=== PATIENT | male | born 1960 | race Caucasian/White ===

== ENCOUNTER 2018-04-27 10:12 | Day surgery (SDC) | payer MEDICARE, MEDICAID ==
[~2018-04-27] VITALS: Ht 182.9 cm; Wt 151.8 kg
[~2018-04-27 10:12] MED LIST: AMBIEN 10MG10 MG PO; ASPIRIN 81M81 MG/TA2 PO; CEFAZOLIN1 GM IV; CEPHALEXIN500 M1 PO; CYMBALTA 60MG60 MG PO; DIOVAN HCT 25 M1 TA1 PO; DIOVAN160 MG PO; DULCOLAX S10 MG/SUPP RC; GABAPENTIN400 M1 PO; GENTAMICIN OPTHA3 GM OP; LANTUS100 U/ML SC; LEVAQUIN 5500 MG/TA1 PO; LEVAQUIN 750MG750 M1 PO; MILK OF MA400 MG/52 PO; MYLANTA 150 ML150 M1 PO; NEURONTIN400 MG/CAP PO; NORCO 325 MG-7.1 TAB PO; NORVASC 10MG10 MG PO; NORVASC 5MG5 MG/TAB PO; NOVLOG; NOVOLOG 100U100 U/ML SQ; PERCOCET 325 MG1 TA2 PO; SEROQUEL 2525 MG/TAB PO; TOPROL XL 25MG25 MG PO; TYLENOL 325MG325 MG PO; TYLENOL ARTHRI650 M1 PO; TYLENOL SU650 MG/SUP RC; ULTRAM 50MG TAB50 MG PO; ZOCOR 20MG20 MG PO
[2018-04-27 10:43] VITALS: BP 160/80; PULSE 81; TEMP 97.4
[2018-04-27] MEDS ORDERED: LANTUS100 U/ML SQ (11:22)
[2018-04-27] MEDS ORDERED: ZOCOR 20MG20 MG PO (11:24)
[2018-04-27] MEDS ORDERED: NOVOLOG 100U100 U/M1 SQ (11:24)
[2018-04-27] MEDS ORDERED: DIOVAN HCT 25 M1 TA1 PO (11:25)
[2018-04-27] MEDS ORDERED: COUMADIN4 MG PO (11:27)
[2018-04-27] MEDS ORDERED: ULTRAM 50MG TAB50 MG PO (11:29)
[2018-04-27] MEDS ORDERED: SEROQUEL 2525 MG/TAB PO (11:30)
[2018-04-27] MEDS ORDERED: ZANAFLEX CAPSULE4 MG PO (11:30)
[2018-04-27] MEDS ORDERED: AMBIEN 10MG10 MG PO (11:31)
[2018-04-27] MEDS ORDERED: COUMADIN 3MG3 MG/TAB PO (11:31)
[2018-04-27] MEDS ORDERED: NEURONTIN400 MG/CAP PO (11:32)
[2018-04-27 12:27] VITALS: BP 160/76; PULSE 78; TEMP 98
[2018-04-27 12:42] VITALS: BP 119/90; PULSE 77
[2018-04-27 12:57] VITALS: BP 137/77; PULSE 69
== END 2018-04-27 13:15 | disposition home or self-care (01) ==
LOC: SDCO 10:12
DX: D12.2 Benign neoplasm of ascending colon (principal); D12.0 Benign neoplasm of cecum; D12.5 Benign neoplasm of sigmoid colon; K57.30 Diverticulosis of large intestine without perforation or abscess without bleeding; J44.9 Chronic obstructive pulmonary disease, unspecified; I10 Essential (primary) hypertension; G47.33 Obstructive sleep apnea (adult) (pediatric); I48.91 Unspecified atrial fibrillation; E11.9 Type 2 diabetes mellitus without complications; Z86.711 Personal history of pulmonary embolism; Z79.01 Long term (current) use of anticoagulants; Z79.899 Other long term (current) drug therapy
CPT/HCPCS: J2250; J2405; J3010; J7030

== ENCOUNTER → 2019-03-08 | Outpatient (CLI) | payer MEDICARE, MEDICAID ==
[~2019-03-08] MED LIST changes: +AMOXICILLIN 8751 TAB PO; +COUMADIN 3MG3 MG/TAB PO; +COUMADIN4 MG PO; +DOXYCYCLINE 10100 MG PO; +LANTUS100 U/ML SQ; +NOVOLOG 100U100 U/M1 SQ; +ZANAFLEX CAPSULE4 MG PO
== END ==
LOC: COL.RAD 12:42
DX: M47.817 Spondylosis without myelopathy or radiculopathy, lumbosacral region (principal); M48.07 Spinal stenosis, lumbosacral region; G89.29 Other chronic pain

== ENCOUNTER → 2020-01-17 | Outpatient (CLI) | payer MEDICARE, MEDICAID | LOC: ZCOL.LAB 15:31 | DX: E11.69 Type 2 diabetes mellitus with other specified complication (principal); I83.212 Varicose veins of right lower extremity with both ulcer of calf and inflammation ==

== ENCOUNTER → 2020-02-13 | Outpatient (CLI) | payer MEDICARE, MEDICAID | LOC: ZCOL.LAB 18:28 | DX: E11.621 Type 2 diabetes mellitus with foot ulcer (principal); L97.419 Non-pressure chronic ulcer of right heel and midfoot with unspecified severity ==

== ENCOUNTER → 2020-02-13 | Outpatient (CLI) | payer MEDICARE, MEDICAID | LOC: COL.LAB 15:27 | DX: E11.621 Type 2 diabetes mellitus with foot ulcer (principal); L97.419 Non-pressure chronic ulcer of right heel and midfoot with unspecified severity ==

== ENCOUNTER 2020-03-07 09:14 | Inpatient (IN) | payer MEDICARE, MEDICAID ==
[~2020-03-07] VITALS: Ht 182.9 cm; Wt 152.3 kg
[2020-03-07] MEDS ORDERED: TOPROL XL 50MG50 MG PO (09:23)
[2020-03-07] MEDS ORDERED: NORVASC 5MG5 MG/TAB PO (09:24)
[2020-03-07] MEDS ORDERED: BACTRIM DS 8001 TAB PO (09:24)
[2020-03-07] MEDS ORDERED: COUMADIN 5MG5 MG/TAB PO (09:25)
[2020-03-07] MEDS ORDERED: ASPIRIN E.C. 8181 MG PO (09:26)
[2020-03-07 09:57] LABS: BASO % 0.4 % (0.0-2.0); EOS % 0.3 % (0-4.0); GRAN # 9.5 (1.4-6.5); HEMATOCRIT 44.8 % (42.0-52.0); HEMOGLOBIN 14.3 g/dl (13.5-18.0); LYMPH # 0.8 (1.2-3.4); LYMPH % 7.3 % (20.0-51.0); MEAN CELL VOLUME 87 fl (80.0-100.0); MEAN CORPUSCULAR HEMOGLOBIN 28 pg (27.0-31.0); MEAN CORPUSCULAR HGB CONC 32 g/dl (33.0-37.0); MEAN PLATELET VOLUME 9.8 fl (7.4-10.4); MONO # 0.5 (0.1-0.6); MONO % 4.7 % (1.7-9.3); PLATELET COUNT 256 K/mm3 (130-400); RED BLOOD COUNT 5.15 M/mm3 (4.20-5.60); REDCELL DISTRIBUTION WIDTH-CV 15.7 % (11.5-14.5)
[2020-03-07 10:07] LABS: ALBUMIN 4.5 gm/dL (3.5-5.0); BILIRUBIN,TOTAL 0.8 mg/dL (0.0-1.0); C-REACTIVE PROTEIN 4.4 mg/dL (0.0-0.9); CALCIUM 9.2 mg/dL (8.4-10.2); CREATININE, serum 1.28 (0.66-1.25); POTASSIUM 4.3 mmol/L (3.4-5.0); TOTAL PROTEIN 8.7 gm/dL (6.4-8.2)
[2020-03-07 10:21] LABS: ERYTHROCYTE SEDIMENTATION RATE 19 mm/hr (0-30)
[2020-03-07 10:56] LABS: TROPONIN-I < 0.012 ng/mL (0.000-0.035)
[2020-03-07 11:57] LABS: PROTHROMBIN TIME 139.2 SECONDS (9.7-12.8)
[2020-03-07 11:58] LABS: INR 12.1 (0.8-3.0)
[2020-03-07 16:03] VITALS: BP 144/54; PULSE 74; TEMP 97.8
--- NOTE | 2020-03-07 18:00 | NUR ---
Pt arrived to room 310. He is pleasant A/O x4. Breathing is even and unlabored on RA. Pt reports some pain to LLE, lower back. No abrasion/bruising visualized at this time. 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 Pt denies any N/V. Did have one bloody nose after coming to floor which resolved with pressure and ice. POC discussed with patient who verbalizes understanding. He has no further needs at this time. Call light within reach.
[2020-03-07 18:49] VITALS: BP 148/62; PULSE 73; TEMP 97.7
--- NOTE | 2020-03-07 21:30 | NUR ---
PT A/O X3, WITH C/O PAIN IN LLE RATED AT A 6/10, GAVE NORCO FOR PAIN. PT IN BED WITH HOB ELEVATED AT A 45 DEGREE ANGLE. PT BLOWS NOSE FORCEFULLY AND HAS BLOOD CLOTS EXSPELLED. ADVISED PT NOT TO BLOW NOSE SO FORCEFULLY AND TO ONLY BLOW ON NOSTRIL AT A TIME. NO OTHER NEEDS AT THIS TIME, CALL LIGHT WITHIN REACH.
[2020-03-07 23:33] VITALS: BP 154/57; PULSE 80; TEMP 97.4
[2020-03-08 04:16] VITALS: BP 139/58; PULSE 88; TEMP 98.7
--- NOTE | 2020-03-08 04:37 | NUR ---
CALLED DR. CHAWLA IN REFERENCE TO PT RETAINING URINE. PT STATED THAT HE HAD A LOT OF FLUIDS IN BUT HARDLY ANYTHING IS COMING OUT. BLADDER SCAN SHOWS THAT HE HAD 897ML OF URINE IN HIS BLADDER. DR. CHAWLA GAVE ORDERS TO PLACE A MONGE IN AND GET A UA.
--- NOTE | 2020-03-08 05:18 | NUR ---
INSERTED MONGE CATHETER 16F WITH 10CC OF STERILE WATER. PT HAD 930ML OF URINE OUT AFTER INSERTION. PT DID URINATE IN URINAL AND ONLY HAD 100ML OUT.
[2020-03-08 05:23] LABS: COLLECTION METHOD CLEAN CATCH
[2020-03-08 05:28] LABS: MUCOUS Present /lpf; PH 5 (5-8); SQUAMOUS EPITHELIAL None Seen /hpf; URINE APPEARANCE Clear; URINE BACTERIA Rare /hpf; URINE BILIRUBIN Negative (NEGATIVE); URINE BLOOD 1+ (NEGATIVE); URINE COLOR Yellow; URINE GLUCOSE 2+ (NEGATIVE); URINE KETONE 1+ (NEGATIVE); URINE LEUKOCYTE ESTERASE Negative (NEGATIVE); URINE NITRATE Negative (NEGATIVE); URINE PROTEIN(semi-quant) 2+ (NEGATIVE); URINE RBC 0-2 /hpf; URINE UROBILINOGEN Negative (NEGATIVE)
--- NOTE | 2020-03-08 07:12 | NUR ---
PT HAS BEEN UP MOST OF THE NIGHT. DID NOT SLEEP WELL. PT NOT BEING CONTROLLED WITH ONE NORCO. PT HAD A FAIRLY GOOD NIGHT, WITH ONLY ISSUE OF URINARY RETENTION, AND MONGE CATHETER PLACED. PT HAS CALL LIGHT WITHIN REACH.
[2020-03-08 07:15] LABS: BASO # 0.1 (0.0-0.2); BASO % 0.5 % (0.0-2.0); EOS # 0.1 (0.0-0.7); EOS % 0.8 % (0-4.0); GRAN # 7.3 (1.4-6.5); GRAN % 76.8 % (42.2-75.2); LYMPH # 1.3 (1.2-3.4); LYMPH % 13.8 % (20.0-51.0); MEAN CELL VOLUME 87 fl (80.0-100.0); MEAN CORPUSCULAR HGB CONC 32 g/dl (33.0-37.0); MEAN PLATELET VOLUME 9.7 fl (7.4-10.4); MONO # 0.7 (0.1-0.6); MONO % 7.7 % (1.7-9.3); PLATELET COUNT 239 K/mm3 (130-400); RED BLOOD COUNT 4.15 M/mm3 (4.20-5.60); REDCELL DISTRIBUTION WIDTH-CV 15.7 % (11.5-14.5)
[2020-03-08 07:28] LABS: INR 6.1 (0.8-3.0)
[2020-03-08 07:29] LABS: HEMOGLOBIN 11.6 g/dl (13.5-18.0); MEAN CORPUSCULAR HEMOGLOBIN 28 pg (27.0-31.0)
[2020-03-08 07:36] LABS: CALCIUM 8.3 mg/dL (8.4-10.2); CREATININE, serum 1.07 (0.66-1.25); POTASSIUM 3.8 mmol/L (3.4-5.0)
[2020-03-08 07:42] VITALS: BP 140/54; PULSE 80; TEMP 97.7
[2020-03-08 11:06] VITALS: BP 152/55; PULSE 79; TEMP 98.6
[2020-03-08 17:30] VITALS: BP 141/53; PULSE 74; TEMP 98.8
--- NOTE | 2020-03-08 17:54 | NUR ---
SW met with patient to complete intake. Patient states that he lives alone in [place]. Patient states that he utilize a cane and a walker at home. Patient states that he is independent with his care, but does use a moterized chair as well. Patient provides that his primary customer contact specialist is his sister Nida, PCP is Dr. Ahuja, and obtains meds from [facility]. Patient states that he would like to exlpore other home health options has he didn't care for the last one. Patient stated that he would like to discuss that at a later time. Patient provides he plans to go back to his home upon dc and currently does not have any concerns. SW will continue to follow.
[2020-03-08 18:57] VITALS: BP 143/53; PULSE 79; TEMP 98.1
--- NOTE | 2020-03-08 20:00 | NUR ---
Assessment complete. Patient complains of pain 8/10 in right hip/leg. PRN morphine administered, per patient request. Patient states his wound care nurse changes his dressing once a week, unless there is drainage. Dressings assessed on lower extremities had no evidence of drainage. Leo is draining yellow, clear urine. Will continue to monitor; Call light in reach.
[2020-03-09 00:13] VITALS: BP 138/53; PULSE 71; TEMP 98.2
[2020-03-09 04:00] VITALS: BP 135/57; PULSE 68; TEMP 98.8
--- NOTE | 2020-03-09 06:20 | NUR ---
Patient has had an uneventful night. After receiving pain medication at the beginning of shift, he has slept throughout the shift with minimal complaints. No new concerns.
[2020-03-09 06:32] LABS: BASO # 0.1 (0.0-0.2); BASO % 0.6 % (0.0-2.0); EOS # 0.3 (0.0-0.7); EOS % 2.7 % (0-4.0); GRAN % 77.7 % (42.2-75.2); HEMOGLOBIN 10.6 g/dl (13.5-18.0); LYMPH % 9.5 % (20.0-51.0); MEAN CELL VOLUME 88 fl (80.0-100.0); MEAN CORPUSCULAR HEMOGLOBIN 28 pg (27.0-31.0); MEAN CORPUSCULAR HGB CONC 32 g/dl (33.0-37.0); MEAN PLATELET VOLUME 10.3 fl (7.4-10.4); MONO # 0.9 (0.1-0.6); PLATELET COUNT 226 K/mm3 (130-400); RED BLOOD COUNT 3.81 M/mm3 (4.20-5.60); REDCELL DISTRIBUTION WIDTH-CV 15.7 % (11.5-14.5)
[2020-03-09 06:34] LABS: HEMATOCRIT 33.4 % (42.0-52.0)
[2020-03-09 06:37] LABS: INR 1.7 (0.8-3.0); PROTHROMBIN TIME 19.6 SECONDS (9.7-12.8)
[2020-03-09 06:43] LABS: CALCIUM 8.2 mg/dL (8.4-10.2); CREATININE, serum 1.29 (0.66-1.25); POTASSIUM 3.8 mmol/L (3.4-5.0)
[2020-03-09 07:28] VITALS: BP 133/48; PULSE 88; TEMP 98.3
--- NOTE | 2020-03-09 08:25 | NUR ---
Assessment complete. Patient laying in bed at this time. Awake and alert. Reports pain at a 7 out of 10 at this time in the right hip/leg area. Bilateral legs are very discolored, dry and scaley, pulses difficult to palpate but are present. IV site is CD&I. PAtient is aware of his POC at this time. Medications administered per orders. PRN pain medication provided for pain. NO other needs were expressed at this time. CAll light is in reach.
--- NOTE | 2020-03-09 10:25 | NUR ---
DORON collaborated with JOVON Alicea. Deanne states that they are recommending SNF for the patient. DORON met with the patient to discuss their recommendation. The patient is agreeable to SNF and chose 1) [facility] 2) [facility]. The patient was also agreeable for SW to send a referral to [facility]. DORON contacted and faxed a referral to all three facilities. SW awaiting their screens. A COVID test was also ordered. Awaiting COVID results.
[2020-03-09 11:32] VITALS: BP 132/55; PULSE 78; TEMP 97.9
--- NOTE | 2020-03-09 14:48 | NUR ---
Patient went down for MRI earlier today and returned because he refused senior living through the transfer to the MRI table. Patient stated that he was in too much pain despite the fact that I informed him that he would be going for another scan and he did not state that he was in pain whatso ever, he denied further needs. When patient returned I let him know and apologized that I was unaware of his pain and he apologized for not informing me. He agreed to have the MRI done tomorrow as long as the pain medications are admininstered prior. Patient also refused the dulcolax suppository stating "why am I gonna take something to make me go poop when I cant walk or stand up". He agreed to the miralax but did not want to take anything more. PRN morphine was given at 1305 and patient was just reassessed for pain, he states that he does not need anymore pain medication at this time. Will continue to monitor. Call light is in reach.
--- NOTE | 2020-03-09 16:26 | NUR ---
Lee, at [facility], reports that they do not have a male bed available at this time. SW to inform the patient.
--- NOTE | 2020-03-09 16:45 | NUR ---
Leela, at [facility], reports that they will follow the patient; but will want to see that the patient's pain is managed and controlled and that he is participating with therapy. SW to update and discuss this with the patient.
[2020-03-09 17:38] VITALS: BP 163/66; PULSE 73; TEMP 98.3
--- NOTE | 2020-03-09 18:03 | NUR ---
Patient had a good shift after he understood to make sure he asked for pain medication when he needed it. His pain was rated at an 8 when he woke up from his nap just now. PRN morphine was provided for this. Patient is in much better spirits now and understands that he will be getting his MRI tomorrow and that he can recieve pain medication prior. Leo is patent draining clear dark yello/orange urine. Continuing to monitor. Call light is in reach.
--- NOTE | 2020-03-09 18:50 | NUR ---
Report received from EMERITA Momin. Pt lying flat in bed. Denies needs at this time. Will continue to monitor.
[2020-03-09 19:28] VITALS: BP 141/56; PULSE 73; TEMP 98
--- NOTE | 2020-03-09 19:50 | NUR ---
Shift assessment complete. HRRR, LCTA, A&Ox4. O2 at 1.5L NC. Leo in place, orange output. Severe pain reported to RLE, IV morphine administered. Reported wound to right foot near ankle, covered by xeroform and coban, dressing CDI. Reported wound to left great toe, dressing CDI. All toes on right foot amputated. Denies other needs at this time.
[2020-03-10 00:04] VITALS: BP 138/63; PULSE 71; TEMP 97.6
[2020-03-10 03:36] VITALS: BP 144/64; PULSE 66; TEMP 98.1
[2020-03-10 06:43] LABS: BASO # 0.1 (0.0-0.2); BASO % 0.5 % (0.0-2.0); EOS # 0.3 (0.0-0.7); EOS % 3.1 % (0-4.0); GRAN # 7.9 (1.4-6.5); GRAN % 76.4 % (42.2-75.2); HEMATOCRIT 33.3 % (42.0-52.0); HEMOGLOBIN 10.4 g/dl (13.5-18.0); LYMPH # 1.1 (1.2-3.4); LYMPH % 10.4 % (20.0-51.0); MEAN CELL VOLUME 89 fl (80.0-100.0); MEAN CORPUSCULAR HEMOGLOBIN 28 pg (27.0-31.0); MEAN CORPUSCULAR HGB CONC 31 g/dl (33.0-37.0); MONO # 0.9 (0.1-0.6); MONO % 8.9 % (1.7-9.3); PLATELET COUNT 229 K/mm3 (130-400); RED BLOOD COUNT 3.73 M/mm3 (4.20-5.60); REDCELL DISTRIBUTION WIDTH-CV 15.6 % (11.5-14.5)
[2020-03-10 07:00] LABS: CALCIUM 8.5 mg/dL (8.4-10.2); CREATININE, serum 1.29 (0.66-1.25)
[2020-03-10 07:13] LABS: INR 1.5 (0.8-3.0); PROTHROMBIN TIME 16.5 SECONDS (9.7-12.8)
[2020-03-10 07:43] VITALS: BP 143/52; PULSE 74; TEMP 98.3
--- NOTE | 2020-03-10 08:23 | NUR ---
Pt awake and alert upon entry, has C/O pain 12/15. Shift assessments complete, left Pt call light in reach, bed in lowest position.
--- NOTE | 2020-03-10 10:29 | NUR ---
SW met with the patient and updated him on the status of referrals and how [employer] was concerned about his participating with therapy. SW encouraged the patient to participate with therapy. The patient verbalized understanding and states that he will try and work with them. SW to continue to follow.
[2020-03-10 11:28] VITALS: BP 128/56; PULSE 74; TEMP 98.8
--- NOTE | 2020-03-10 14:54 | NUR ---
[facility]
--- NOTE | 2020-03-10 16:19 | NUR ---
SW contacted and updated the patient's sister, Nida. She is agreeable with post-acute rehab for the patient and is supportive of the patient's preferences. She is anxious to hear what the results of the patient's MRI will be. SW to continue to follow.
[2020-03-10 16:41] VITALS: BP 119/61; PULSE 79; TEMP 97.2
[2020-03-10 20:00] VITALS: BP 150/63; PULSE 73; TEMP 99.3
--- NOTE | 2020-03-10 20:00 | NUR ---
Assessment complete. Patient is resting in bed and complains of pain 8/10. PRN oxydocone 10 mg administered. Dressings on wounds are CDI and no edema is present. Bilateral lower extremities are discolored, which is chronic for him. No new concerns, will continue to monitor.
--- NOTE | 2020-03-10 20:15 | NUR ---
Pt resting in the room, pain is controlled this afternoon, VS have remained stable.
[2020-03-11 00:03] VITALS: BP 119/58; PULSE 77; TEMP 99.1
[2020-03-11 04:02] VITALS: BP 123/58; PULSE 72; TEMP 98.1
--- NOTE | 2020-03-11 07:10 | NUR ---
Report with EMERITA Gutiérrez. Pt resting in bed, denies needs. Call light in reach.
[2020-03-11 07:56] VITALS: BP 143/56; PULSE 72; TEMP 98.7
[2020-03-11] MEDS ORDERED: TYLENOL 325MG325 MG PO (08:17)
[2020-03-11] MEDS ORDERED: MELATIN 3 MG-11 TAB PO (08:18)
[2020-03-11] MEDS ORDERED: DULCOLAX S10 MG/SUPP RC (08:18)
[2020-03-11] MEDS ORDERED: SENEXON-S 50-81 EACH PO (08:18)
[2020-03-11] MEDS ORDERED: MIRALAX PA17 GM/Dose PO (08:18)
[2020-03-11] MEDS ORDERED: ROXICODONE 55 MG/TAB PO (08:20)
[2020-03-11] MEDS ORDERED: NOVLOG SQ (08:21)
[2020-03-11] MEDS ORDERED: LEVEMIR FLEX100 U/ML SQ (08:21)
[2020-03-11] MEDS ORDERED: NOVOLOG 100U100 U/M1 SQ (08:22)
[2020-03-11 09:26] LABS: INR 1.6 (0.8-3.0)
--- NOTE | 2020-03-11 10:47 | NUR ---
The hospitalist notified DORON that he would be ready to d/c the patient today. The patient's COVID results are still pending. DORON notified and faxed updates to Leela at [facility]. DORON notified Ger at [facility]. Ger, at [facility], reports that they are able to accept the patient. DORON met with the patient to update. The patient states that he is agreeable to going to [facility], if [facility] cannot take. DORON presented and read the IM form outloud to the patient. The patient verbalized understanding and gave DORON approval to sign the form on his behalf. Awaiting COVID results.
[2020-03-11 11:04] VITALS: BP 121/59; PULSE 76; TEMP 98.3
--- NOTE | 2020-03-11 13:57 | NUR ---
Leela, at [facility], reports that they are able to accept the patient. SW met with the patient to inform. The patient states that he would prefer to go to [facility] now. DORON contacted and updated the patient's sister, Nida. She is supportive of his decision. DORON notified both facilities.
--- NOTE | 2020-03-11 14:53 | NUR ---
Ger, at [facility], reports that they are able to take the patient without having his COVID results yet. She requests that we just notify and send them the results, once in. DORON notified the clinical team, the patient, and the patient's sister, Nida. The patient is to discharge today, 03/11, to [facility] for a skilled stay. Transportation was scheduled around [id number], via [facility]. DORON informed the patient, his RN, and the patient's sister (Nida) via phone. They were all agreeable to the time. DORON to fax COVID results to [facility], once in.
--- NOTE | 2020-03-11 16:22 | NUR ---
The patient's COVID results came back negative. DORON notified and faxed the results to Ger at [facility].
--- NOTE | 2020-03-11 16:25 | NUR ---
Report called to Mis nurse at [facility]. IV discontinued from right forearm with tip intact. Pt discharged to [facility] via WC with Leo catheter in place accompanied by SNF transportation staff.
== END 2020-03-11 16:28 | DRG 813 ==
LOC: COL.ER 09:14 → MEDICAL 12:03
PROVIDERS: Emergency Medicine; Physician Assistant; ADMIT Internal Medicine
DX: D68.32 Hemorrhagic disorder due to extrinsic circulating anticoagulants (principal); L97.919 Non-pressure chronic ulcer of unspecified part of right lower leg with unspecified severity; J96.10 Chronic respiratory failure, unspecified whether with hypoxia or hypercapnia; D62 Acute posthemorrhagic anemia; S70.11XA Contusion of right thigh, initial encounter; E11.42 Type 2 diabetes mellitus with diabetic polyneuropathy; E11.22 Type 2 diabetes mellitus with diabetic chronic kidney disease; E11.622 Type 2 diabetes mellitus with other skin ulcer; Z66 Do not resuscitate; G47.33 Obstructive sleep apnea (adult) (pediatric); N18.9 Chronic kidney disease, unspecified; I12.9 Hypertensive chronic kidney disease with stage 1 through stage 4 chronic kidney disease, or unspecified chronic kidney disease; T45.515A Adverse effect of anticoagulants, initial encounter; E66.9 Obesity, unspecified; E78.5 Hyperlipidemia, unspecified; R33.9 Retention of urine, unspecified; I87.8 Other specified disorders of veins; M48.02 Spinal stenosis, cervical region; R04.0 Epistaxis; G89.29 Other chronic pain; M54.5 Low back pain; F32.9 Major depressive disorder, single episode, unspecified; I44.0 Atrioventricular block, first degree; G47.00 Insomnia, unspecified; W18.30XA Fall on same level, unspecified, initial encounter; Y93.9 Activity, unspecified; Y92.002 Bathroom of unspecified non-institutional (private) residence as the place of occurrence of the external cause; Z99.81 Dependence on supplemental oxygen; Z79.01 Long term (current) use of anticoagulants; Z79.4 Long term (current) use of insulin; Z79.891 Long term (current) use of opiate analgesic; Z86.711 Personal history of pulmonary embolism; Z89.421 Acquired absence of other right toe(s)
CPT/HCPCS: OP; 99222-AI; 99232-AI; 99239; A4314; J1815; J2270; J7030; Q9967

== ENCOUNTER → 2020-03-18 | Outpatient (CLI) | payer MEDICARE, MEDICAID ==
[~2020-03-18] MED LIST changes: +ASPIRIN E.C. 8181 MG PO; +BACTRIM DS 8001 TAB PO; +COUMADIN 5MG5 MG/TAB PO; +LEVEMIR FLEX100 U/ML SQ; +MELATIN 3 MG-11 TAB PO; +MIRALAX PA17 GM/Dose PO; +NOVLOG SQ; +ROXICODONE 55 MG/TAB PO; +SENEXON-S 50-81 EACH PO; +TOPROL XL 50MG50 MG PO
== END ==
LOC: COL.RAD 12:58
DX: S70.11XD Contusion of right thigh, subsequent encounter (principal); Z87.81 Personal history of (healed) traumatic fracture

== ENCOUNTER → 2020-04-15 | Outpatient (CLI) | payer MEDICARE, MEDICAID | LOC: ZCOL.LAB 16:17 | DX: E13.621 Other specified diabetes mellitus with foot ulcer (principal) ==

== ENCOUNTER → 2020-10-12 | Outpatient (CLI) | payer MEDICARE, MEDICAID | LOC: ZCOL.LAB 16:05 | DX: L97.909 Non-pressure chronic ulcer of unspecified part of unspecified lower leg with unspecified severity (principal) ==

== ENCOUNTER → 2020-10-14 | Outpatient (CLI) | payer MEDICARE, MEDICAID | LOC: COL.RAD 10:48 | DX: M77.32 Calcaneal spur, left foot (principal); L97.909 Non-pressure chronic ulcer of unspecified part of unspecified lower leg with unspecified severity ==

== ENCOUNTER → 2020-12-18 | Outpatient (CLI) | payer MEDICARE, MEDICAID | LOC: ZCOL.LAB 16:14 | DX: L97.909 Non-pressure chronic ulcer of unspecified part of unspecified lower leg with unspecified severity (principal) ==

== ENCOUNTER → 2021-05-14 | Outpatient (CLI) | payer MEDICARE, MEDICAID | LOC: ZCOL.LAB 17:11 | DX: E13.621 Other specified diabetes mellitus with foot ulcer (principal) ==

== ENCOUNTER → 2021-05-20 | Outpatient (CLI) | payer MEDICARE, MEDICAID ==
[2021-05-20 14:04] LABS: BASO # 0.1 K/mm3 (0.0-0.2); BASO % 0.9 % (0.0-2.0); EOS # 0.3 K/mm3 (0.0-0.7); EOS % 4.8 % (0.0-4.0); GRAN # 3.8 K/mm3 (1.4-6.5); GRAN % 65.6 % (42.2-75.2); HEMATOCRIT 46.4 % (42.0-52.0); HEMOGLOBIN 14.9 g/dl (13.5-18.0); LYMPH # 1.2 K/mm3 (1.2-3.4); LYMPH % 20.5 % (20.0-51.0); MEAN CELL VOLUME 88 fl (80.0-100.0); MEAN CORPUSCULAR HEMOGLOBIN 28 pg (27-31); MEAN CORPUSCULAR HGB CONC 32 g/dl (33.0-37.0); MEAN PLATELET VOLUME 9.5 fl (7.4-10.4); MONO # 0.5 K/mm3 (0.1-0.6); PLATELET COUNT 237 K/mm3 (130-400); RED BLOOD COUNT 5.27 M/mm3 (4.20-5.60); REDCELL DISTRIBUTION WIDTH-CV 14.7 % (11.5-14.5)
[2021-05-20 14:21] LABS: ALBUMIN 3.5 gm/dL (3.4-4.8); BILIRUBIN,TOTAL 0.4 mg/dL (0.2-1.2); C-REACTIVE PROTEIN 1.23 mg/dL (0.00-0.50); CALCIUM 9.5 mg/dL (8.4-10.2); CREATININE, serum 1.2 mg/dL (0.72-1.25); POTASSIUM 4.5 mmol/L (3.5-4.5); TOTAL PROTEIN 8.7 gm/dL (6.2-8.1)
[2021-05-20 14:26] LABS: ERYTHROCYTE SEDIMENTATION RATE 50 mm/hr (0-30)
== END ==
LOC: COL.LAB 13:44
PROVIDERS: Nurse Practitioner
DX: B99.9 Unspecified infectious disease (principal)

== ENCOUNTER → 2021-05-24 | Outpatient (CLI) | payer MEDICARE, MEDICAID | LOC: COL.RAD 11:45 | DX: L97.509 Non-pressure chronic ulcer of other part of unspecified foot with unspecified severity (principal) | CPT/HCPCS: A9585 ==

== ENCOUNTER → 2021-06-04 | Outpatient (CLI) | payer MEDICARE, MEDICAID | LOC: ZCOL.LAB 16:21 | DX: L97.909 Non-pressure chronic ulcer of unspecified part of unspecified lower leg with unspecified severity (principal); I87.331 Chronic venous hypertension (idiopathic) with ulcer and inflammation of right lower extremity ==

== ENCOUNTER 2021-11-24 03:46 | Inpatient (IN) | payer MEDICARE, MEDICAID ==
[~2021-11-24] VITALS: Ht 182.9 cm; Wt 131.8 kg
[2021-11-24 04:05] LABS: HEMATOCRIT 42.1 % (42.0-52.0); HEMOGLOBIN 13.7 g/dl (13.5-18.0); MEAN CELL VOLUME 86 fl (80.0-100.0); MEAN CORPUSCULAR HEMOGLOBIN 28 pg (27-31); MEAN CORPUSCULAR HGB CONC 33 g/dl (33.0-37.0); MEAN PLATELET VOLUME 9.7 fl (7.4-10.4); PLATELET COUNT 282 K/mm3 (130-400); RED BLOOD COUNT 4.89 M/mm3 (4.20-5.60); REDCELL DISTRIBUTION WIDTH-CV 14.6 % (11.5-14.5)
[2021-11-24 04:28] LABS: ALBUMIN 3.1 gm/dL (3.4-4.8); BILIRUBIN,TOTAL 0.7 mg/dL (0.2-1.2); C-REACTIVE PROTEIN 9.42 mg/dL (0.00-0.50); CALCIUM 8.6 mg/dL (8.4-10.2); CREATININE, serum 1.66 mg/dL (0.72-1.25); POTASSIUM 4.1 mmol/L (3.5-4.5)
[2021-11-24 04:37] LABS: BAND 30 % (0-10); LYMPHOCYTE 5 % (20.0-51.0); NEUTROPHILS 63 % (42.0-75.2)
[2021-11-24 04:38] LABS: PLATELET ESTIMATE NORMAL (NORMAL)
[2021-11-24 04:40] LABS: TROPONIN-I 0.068 ng/mL (0.00-0.033)
[2021-11-24 04:56] LABS: INR 1.3 (0.8-3.0); PROTHROMBIN TIME 15.3 SECONDS (9.7-12.8)
[2021-11-24 04:59] LABS: PARTIAL THROMBOPLASTIN TIME 31.4 SECONDS (26.0-37.0)
[2021-11-24 05:12] LABS: HEMATOCRIT 41.1 % (42.0-52.0); HEMOGLOBIN 13.4 g/dl (13.5-18.0); MEAN CELL VOLUME 88 fl (80.0-100.0); MEAN CORPUSCULAR HEMOGLOBIN 29 pg (27-31); MEAN CORPUSCULAR HGB CONC 33 g/dl (33.0-37.0); MEAN PLATELET VOLUME 9.5 fl (7.4-10.4); PLATELET COUNT 256 K/mm3 (130-400); RED BLOOD COUNT 4.69 M/mm3 (4.20-5.60); REDCELL DISTRIBUTION WIDTH-CV 14.6 % (11.5-14.5)
--- NOTE | 2021-11-24 06:15 | NUR ---
PT WAS DROPPED OFF BY ED. THE PATIENT WAS ABLE TO AMBULATE FROM ED STRETCHER TO ROOM BED. HE STATES "THIS IS THE MOST I HAVE WALKED IN 6 MONTHS." THE PATIENT HAS BILATERAL LOWER EXTREMITY REDNESS, ON THE RIGHT LOWER EXTREMITY THE PATIENT HAS DEEP OPEN WEEPING ULCERS. THESE WOUNDS WERE CULTURED. THE PATIENT DOES HAVE A HISTORY OF MRSA IN 2006. CULTURES HAVE BEEN SENT. THE PATIENT ALSO STATES THAT HE NORMALLY WEARS O2, BUT WHEN HE MOVED, HIS SISTER STOPPED BRINGING HIM SUPPLIES. HE WAS SATURATING 85% ON ROOM AIR WHEN ED RN BROUGHT HIM UP FROM THE ED. THE PATIENT IS RUNNING LR, AND HEPARIN AT THIS TIME. REPORT WAS GIVEN TO EMERITA PINTO.
[2021-11-24 06:20] VITALS: BP 170/54; PULSE 87
--- NOTE | 2021-11-24 06:52 | NUR ---
Vancomycin Initial Dosing Pharmacy Note Ordering provider: Jessenia Tatum E., Indication/duration: sepsis/cellulitis, 7 days LABS: SCr 1.66, CrCl~58, GFR 46 Recommendation: Will continue Vancomycin 1.25 gm IV q12h. Pharmacy will continue to closely monitor and check a Vancomycin trough on 11/26/21. Loading dose: 2.5 grams Maintenance dose: 1.25 grams every 12 hours Trough goal: 15-20 ug/mL
[2021-11-24 07:58] VITALS: BP 170/64; PULSE 76; TEMP 98.7
--- NOTE | 2021-11-24 10:12 | NUR ---
Initial visit; Patient thanked Customs And Immigration Officer for looking in on him and offering prayer and God's blessings. Customs And Immigration Officer will keep Ulysses in her prayers.
--- NOTE | 2021-11-24 11:49 | NUR ---
DDIMER 3000, REPORT TO JOVON CENTENO
[2021-11-24 11:50] VITALS: BP 111/58; PULSE 71; TEMP 97.8
--- NOTE | 2021-11-24 14:47 | NUR ---
Java Web Application Developer met with patient to discuss discharge planning. Patient lives alone in [place] and sees Dr. Ahuja for primary care. Patient has medications delivered from [facility] and does not have current Home Health services, however he states he wishes he did. Patient does not have current home oxygen but reports he is supposed to have it. Patient has a rollator and power chair at home and reports he is normally independent with ADLS. SW discussed Advance Directives with patient and advised the DPOA-HC on file designates his sisters, Nida and Katiuska. Patient states he wants this changed as these sisters just want to "coup him up in a rehab". Patient wants to change DPOA-HC to his sister, Danielle (ph#[phone]). Patient verbalized understanding of DPOA-HC and stated he wanted to designate Danielle and no one else. DORON assisted patient in completing DPOA-HC and DORON and EMERITA Inman provided witness signature. Patient states he plans to return home at time of discharge. Discharge Plan: Home, pending PT/OT recommendations
[2021-11-24 15:43] VITALS: BP 138/60; PULSE 64; TEMP 98.6
[2021-11-24 20:16] VITALS: BP 125/49; PULSE 65; TEMP 98.1
[2021-11-25 00:42] VITALS: BP 114/44; PULSE 56; TEMP 98
[2021-11-25 04:33] VITALS: BP 117/46; PULSE 57; TEMP 97.5
[2021-11-25 08:04] VITALS: BP 123/52; PULSE 62; TEMP 98.1
[2021-11-25 09:11] LABS: BASO # 0.1 K/mm3 (0.0-0.2); BASO % 0.4 % (0.0-2.0); EOS # 0.3 K/mm3 (0.0-0.7); EOS % 2.6 % (0.0-4.0); GRAN # 9.8 K/mm3 (1.4-6.5); GRAN % 83.4 % (42.2-75.2); HEMATOCRIT 38.7 % (42.0-52.0); HEMOGLOBIN 12.4 g/dl (13.5-18.0); LYMPH # 0.9 K/mm3 (1.2-3.4); LYMPH % 7.8 % (20.0-51.0); MEAN CELL VOLUME 89 fl (80.0-100.0); MEAN CORPUSCULAR HEMOGLOBIN 28 pg (27-31); MEAN CORPUSCULAR HGB CONC 32 g/dl (33.0-37.0); MEAN PLATELET VOLUME 10.4 fl (7.4-10.4); MONO # 0.7 K/mm3 (0.1-0.6); MONO % 5.5 % (1.7-9.3); PLATELET COUNT 226 K/mm3 (130-400); RED BLOOD COUNT 4.37 M/mm3 (4.20-5.60); REDCELL DISTRIBUTION WIDTH-CV 14.9 % (11.5-14.5)
[2021-11-25 09:18] LABS: CALCIUM 8.3 mg/dL (8.4-10.2); CREATININE, serum 1.41 mg/dL (0.72-1.25); POTASSIUM 3.8 mmol/L (3.5-4.5)
[2021-11-25 11:12] LABS: COLLECTION METHOD CLEAN CATCH
[2021-11-25 11:22] LABS: PH 5 (5-8); SQUAMOUS EPITHELIAL 0-2 /hpf (0-10); URINE APPEARANCE Clear (CLEAR/HAZY); URINE BACTERIA Rare /hpf (NONE SEEN); URINE BLOOD 1+ (NEGATIVE); URINE COLOR Yellow (YELLOW); URINE GLUCOSE 1+ (NEGATIVE); URINE KETONE Negative (NEGATIVE); URINE NITRATE Negative (NEGATIVE); URINE PROTEIN(semi-quant) 2+ (NEGATIVE); URINE RBC 0-2 /hpf (0-2); URINE UROBILINOGEN Negative (NEGATIVE)
[2021-11-25 12:07] VITALS: BP 136/51; PULSE 63; TEMP 98
--- NOTE | 2021-11-25 12:33 | NUR ---
Met with patient to discuss PT recommendations of skilled rehab once medically ready. SW discussed with the patient his options. Patient states that he likes the idea of our IPR because " if i go to a senior living my sister will want me to stay there". Patient's second choice is [place].
[2021-11-25 16:00] VITALS: BP 146/55; PULSE 64; TEMP 97.5
--- NOTE | 2021-11-25 16:38 | NUR ---
ANESTHESIA PAGED- OR WRITER PRODUCER NOTIFED OF PLAN TO DO EGD BY DR REILLY TOMORROW. HOUSE SUP. AWARE.
[2021-11-25 20:57] VITALS: BP 140/58; PULSE 59; TEMP 98.3
[2021-11-26] VITALS (7 sets, daily range): BP systolic 128–162; BP diastolic 43–64; PULSE 58–65; TEMP 98–98.6
[2021-11-26 06:33] LABS: BASO # 0.1 K/mm3 (0.0-0.2); BASO % 0.6 % (0.0-2.0); EOS # 0.4 K/mm3 (0.0-0.7); EOS % 4.7 % (0.0-4.0); GRAN # 6.3 K/mm3 (1.4-6.5); GRAN % 77.2 % (42.2-75.2); HEMATOCRIT 36.5 % (42.0-52.0); HEMOGLOBIN 11.6 g/dl (13.5-18.0); LYMPH # 0.8 K/mm3 (1.2-3.4); LYMPH % 9.7 % (20.0-51.0); MEAN CELL VOLUME 87 fl (80.0-100.0); MEAN CORPUSCULAR HEMOGLOBIN 28 pg (27-31); MEAN CORPUSCULAR HGB CONC 32 g/dl (33.0-37.0); MEAN PLATELET VOLUME 9.6 fl (7.4-10.4); MONO # 0.6 K/mm3 (0.1-0.6); MONO % 7.6 % (1.7-9.3); PLATELET COUNT 225 K/mm3 (130-400); RED BLOOD COUNT 4.18 M/mm3 (4.20-5.60); REDCELL DISTRIBUTION WIDTH-CV 14.8 % (11.5-14.5)
[2021-11-26 06:50] LABS: CALCIUM 8.4 mg/dL (8.4-10.2); CREATININE, serum 1.23 mg/dL (0.72-1.25)
--- NOTE | 2021-11-26 09:20 | NUR ---
PT OFF FLOOR TO EGD
--- NOTE | 2021-11-26 10:27 | NUR ---
PT RETURNED TO FLOOR FROM EGD
--- NOTE | 2021-11-26 10:30 | NUR ---
PT RETURNED FROM EGD. PT ON ROOM AIR. PT STATES NO PAIN AT THIS TIME. DRESSING ON RIGHT LOWER LEG IS CLEAN, DRY AND INTACT. PT STATES "ALL I NEED RIGHT NOW IS SOMETHING TO EAT." PT WAS ABLE TO CALL AND ORDER A TRAY. NO OTHER NEEDS STATED. CALL LIGHT IS WITHIN REACH.
--- NOTE | 2021-11-26 12:30 | NUR ---
REMOVED PT OLD DRESSING. CLEANSED WOUND WITH NS. PLACED XEROFORM GAUZE OVER AND THEN 2 4X4 GAUZE OVER AND WRAPPED WITH KERLIX. PT TOLERATED WELL.
--- NOTE | 2021-11-26 14:02 | NUR ---
[facility] is unable to accept this patient. SNF referrals faxed to [place] [facility] and the three local [facility] facilities.
--- NOTE | 2021-11-26 18:39 | NUR ---
PT LAYING SUPINE IN BED ON ROOM AIR. PT STATES NO PAIN AT THIS TIME. DRESSING ON RIGHT LOWER LEG IS DRY AND INTACT. PT IV IS LEAKING, IT WAS DCd. ATTEMPTED TO RESTART ANOTHER IV VIA 2 ATTEMPTS THAT WAS UNSUCCESSFUL. PT STATES NO NEEDS/CONCERNS AT THIS TIME. FAMILY IS AT BEDSIDE. CALL LIGHT IS WITHIN REACH.
[2021-11-27 04:48] VITALS: BP 135/55; PULSE 57; TEMP 98.9
[2021-11-27 08:23] VITALS: BP 131/56; PULSE 60; TEMP 98.6
--- NOTE | 2021-11-27 08:35 | NUR ---
PT SITTING UP IN BED WITH .5 LIT OF O2 ON VIA NC. PT STATES NO PAIN AT THIS TIME. DRESSING TO RIGHT LOWER LEG IS DRY AND INTACT. LEGS ARE ELEVATED ON PILLOW. PT STATES HE IS DONE WITH BREAKFAST. TRAY WAS REMOVED. PT STATES NO OTHER NEEDS/CONCERNS AT THIS TIME. CALL LIGHT IS WITHIN REACH.
[2021-11-27 10:42] LABS: CALCIUM 8.3 mg/dL (8.4-10.2); CREATININE, serum 1.18 mg/dL (0.72-1.25); POTASSIUM 3.7 mmol/L (3.5-4.5)
[2021-11-27 11:31] VITALS: BP 114/87; PULSE 65; TEMP 97.7
--- NOTE | 2021-11-27 11:42 | NUR ---
OLD DRESSING WAS REMOVED. CLEANSED WOULD WITH NORMAL SALINE. PLACED XEROFORM GAUZE OVER THEN TWO 4X4 GAUZE OVER WOUND AND SECURED WITH KERLIX AND TAPE. PT TOLERATED WELL.
[2021-11-27 15:52] VITALS: BP 150/55; PULSE 66; TEMP 97.9
--- NOTE | 2021-11-27 18:34 | NUR ---
PT LAYING SUPINE IN BED WATCHING TV WITH 0.5 LIT VIA NC ON. PT STATES NO PAIN AT THIS TIME. DRESSING TO RIGHT LEG IS DRY AND INTACT. PT STATES NO NEEDS/CONCENRS AT THIS TIME. CALL LIGHT IS WITHIN REACH.
[2021-11-27 19:37] VITALS: BP 171/60; PULSE 66; TEMP 97.9
[2021-11-27 23:32] VITALS: BP 160/61; PULSE 65; TEMP 97.6
[2021-11-28 03:55] VITALS: BP 134/59; PULSE 62; TEMP 98.4
[2021-11-28 07:19] LABS: BASO % 0.6 % (0.0-2.0); EOS # 0.4 K/mm3 (0.0-0.7); EOS % 5.6 % (0.0-4.0); GRAN # 4.8 K/mm3 (1.4-6.5); GRAN % 70.5 % (42.2-75.2); HEMOGLOBIN 11.3 g/dl (13.5-18.0); LYMPH # 0.9 K/mm3 (1.2-3.4); LYMPH % 13.2 % (20.0-51.0); MEAN CELL VOLUME 88 fl (80.0-100.0); MEAN CORPUSCULAR HEMOGLOBIN 28 pg (27-31); MEAN CORPUSCULAR HGB CONC 32 g/dl (33.0-37.0); MEAN PLATELET VOLUME 9.6 fl (7.4-10.4); MONO # 0.6 K/mm3 (0.1-0.6); MONO % 9.2 % (1.7-9.3); PLATELET COUNT 235 K/mm3 (130-400); RED BLOOD COUNT 4.08 M/mm3 (4.20-5.60); REDCELL DISTRIBUTION WIDTH-CV 14.5 % (11.5-14.5)
[2021-11-28 07:31] LABS: HEMATOCRIT 35.7 % (42.0-52.0)
[2021-11-28 07:40] LABS: ALBUMIN 2.2 gm/dL (3.4-4.8); CALCIUM 8.3 mg/dL (8.4-10.2); CREATININE, serum 1.15 mg/dL (0.72-1.25); POTASSIUM 3.7 mmol/L (3.5-4.5)
[2021-11-28 07:45] VITALS: BP 139/57; PULSE 65; TEMP 98.2
--- NOTE | 2021-11-28 08:37 | NUR ---
PT LAYING SUPINE IN BED WITH 2LIT VIA NC ON. PT DRESSING ON RIGHT LOWER LEG IS DRY AND INTACT. PT STATES NO PAIN AT THIS TIME. PT STATES NO NEEDS/CONCERNS AT THIS TIME. CALL LIGHT IS WITHIN REACH.
[2021-11-28 12:18] VITALS: BP 151/61; PULSE 57; TEMP 98.2
[2021-11-28 16:16] VITALS: BP 170/66; PULSE 59; TEMP 98.2
--- NOTE | 2021-11-28 18:54 | NUR ---
pt laying supine in bed on 2 lit via nc watching movie. pt states no pain or discomfort at this time. dressing to right leg is dry and intact. pt states no concrns or needs at this time. call light is within reach.
[2021-11-28 19:41] VITALS: BP 173/67; PULSE 67; TEMP 98.1
[2021-11-29 00:01] VITALS: BP 147/57; PULSE 66; TEMP 99.6
[2021-11-29 03:44] VITALS: BP 152/54; PULSE 63; TEMP 98
--- NOTE | 2021-11-29 04:30 | NUR ---
ASSESSMENT COMPLETE FOR [employer] INSTRUMENTS TUBE BENDER. PT RESTING IN BED WATCHING TV. PT DENIED GENERAL PAIN, CHEST PAIN, PALPITATIONS, N,V,D, SOB OR DIZZINESS. PT STATED HE DOESN'T WANT TO GO TO REHAB, BUT FEELS LIKE, "THEY'RE GOING TO MAKE ME GO." CALL LIGHT WITHIN REACH.
[2021-11-29 06:21] LABS: BASO # 0.1 K/mm3 (0.0-0.2); BASO % 0.8 % (0.0-2.0); EOS # 0.4 K/mm3 (0.0-0.7); EOS % 5.8 % (0.0-4.0); GRAN # 4.7 K/mm3 (1.4-6.5); GRAN % 70.4 % (42.2-75.2); HEMATOCRIT 37.8 % (42.0-52.0); HEMOGLOBIN 11.8 g/dl (13.5-18.0); LYMPH # 0.9 K/mm3 (1.2-3.4); LYMPH % 13.2 % (20.0-51.0); MEAN CELL VOLUME 89 fl (80.0-100.0); MEAN CORPUSCULAR HEMOGLOBIN 28 pg (27-31); MEAN CORPUSCULAR HGB CONC 31 g/dl (33.0-37.0); MEAN PLATELET VOLUME 9.5 fl (7.4-10.4); MONO # 0.6 K/mm3 (0.1-0.6); MONO % 8.6 % (1.7-9.3); PLATELET COUNT 250 K/mm3 (130-400); RED BLOOD COUNT 4.27 M/mm3 (4.20-5.60); REDCELL DISTRIBUTION WIDTH-CV 14.4 % (11.5-14.5)
[2021-11-29 06:49] LABS: ALBUMIN 2.2 gm/dL (3.4-4.8); CALCIUM 8.5 mg/dL (8.4-10.2); CREATININE, serum 1.17 mg/dL (0.72-1.25); MAGNESIUM 1.9 mg/dL (1.6-2.6); PHOSPHOROUS 3.4 mg/dL (2.3-4.7); POTASSIUM 3.9 mmol/L (3.5-4.5)
[2021-11-29 08:03] VITALS: BP 161/65; PULSE 58; TEMP 98.1
--- NOTE | 2021-11-29 08:10 | NUR ---
(LATE ENTRY) On 11/26/21 Tax Technician attempted to follow up with patient to discuss rehab referrals. Patient was asleep and did not wake upon SW entry. DORON contacted patient's sister, Danielle to discuss discharge planning. DORON also advised Danielle patient designated her as DPOA-HC. Danielle said this made her other two sisters very upset. In fact, Danielle advised patient and her other sisters have not spoken to her since their dad so she found it odd patient chose to designate her. Danielle advised she had no preferences on where patient went to rehab. DORON faxed referral to [facility] to request [employer] authorization for SNF.
[2021-11-29 11:34] VITALS: BP 159/59; PULSE 62; TEMP 97.5
[2021-11-29 16:09] VITALS: BP 168/55; PULSE 59; TEMP 97.9
--- NOTE | 2021-11-29 17:04 | NUR ---
Leela at [facility] declined referral. DORON spoke with Lee at [facility] who advised they can clinically meet patient's needs. DORON discussed Ortho note which advised patient will likely need bilateral BKA in the future. DORON advised Lee that this will be arranged as an outpatient and that Infectious Disease will be consulted to today and make IV antibiotic recs. Discharge is planned for tomorrow as long as [facility] can meet IV antibiotic needs. DORON attended clinical rounds with the team and patient is agreeable to [facility] SNF. DORON contacted [facility] and secured SNF auth for [facility]. Auth #[id number]. Auth information was sent to Lee at [facility]. Discharge Plan: [facility] SNF
--- NOTE | 2021-11-29 19:33 | NUR ---
PATIENT ALERT AND ORIENTED, RESTING COMFORTABLY IN BED. NO COMPLAINTS OF PAIN. PATIENT INDEPENDENT RANGE OF MOTION AND MOVEMENT IN BED. LEG BANDAGES WEEPING SANGINOUS DRAINAGE. DRESSING CHANGED, WOUNDS CLEANED PER ORDER. LEFT FOOT PEDAL PULSE ONLY FOUND WITH DOPLAR, MARKED WITH BLACK X MARKER. RIGHT FOOT NO PEDAL PULSE FOUND WITH DOPLAR, POT TIB FOUND WITH DOPLAR, ALSO MARKED. PATIENT TAKES PILLS WHOLE WITH WATER OR FOOD.
--- NOTE | 2021-11-29 20:24 | NUR ---
PATIENT RESTING IN BED, INDEPENDENT TURNING AND REPOSITIONING. PATIENT DRESSINGS CHANGED AND WOUND BEDS CLEANED WITH NS. PATIENT HAS HAD NO COMPLAINTS OF PAIN TODAY. PULSES MARKED WITH BLACK (X) ON GAB/LE TO IDENTIFY DOPPLAR LOCATIONS.
[2021-11-29 20:50] VITALS: BP 165/67; PULSE 64; TEMP 98.1
[2021-11-30 00:07] VITALS: BP 153/56; PULSE 82; TEMP 98.4
--- NOTE | 2021-11-30 01:23 | NUR ---
Pt alert and oriented. Follows commands. Calm and cooperative. Pt does not report any pain at this time. Pt denies chest pain/abdominal pain. IV antibx administered per orders. ADA diet enforced. Pt up to BSC to attempy a BM, but did not have a BM. Pt voiding adequately. Shift assessment performed. Medications administered per orders and education provided. VS stable. Afebrile. Satting WNL on 2L NC. BP runs elevated but stable at this time. Pt has various skin issues on the BLE. BLE have 2+ edema and ar red/scaly/flaky. The pedal pulse in the right foot is absent. The pedal pulse in the left foot is 1+. Pt has no toes on the right foot. There is an ulcer on the left great toe, currently dressed with a wet to dry dressing. Left toe is black and has drainage. Pt has an ulcer on the left singh that is scabbed and has drainage. It is currently dressed and wrapped with an teagan wrap. Pt also has an ulcer on the right ankle that reaches to the right heel. It is currently dressed and covered with an teagan wrap. Daily dressing change completed during dayshift on 11/29. Pt encouraged to elevate BLE. lunchroom monitor on. Fall precautions in place. Pt does not report any questions at this time. Bed in low position, call phillips in reach. No concerns at this time.
[2021-11-30 03:55] VITALS: BP 157/67; PULSE 57; TEMP 98.1
--- NOTE | 2021-11-30 04:44 | NUR ---
No adverse events overnight. Pt alert and oriented. Follows commands. Denies pain at this time. VS stable. Satting WNL on 2L NC. Afebrile. ekg monitor tech on. BLE remain elevated with dressings applied. Pt voided adequately overnight, no BM's. Fall precautions in place. IV antibx continued per orders. Pt does not report any questions at this time. Bed low and locked, call phillips within reach. No new concerns at this time.
[2021-11-30 06:17] LABS: BASO % 0.7 % (0.0-2.0); EOS # 0.5 K/mm3 (0.0-0.7); EOS % 8.3 % (0.0-4.0); GRAN # 3.5 K/mm3 (1.4-6.5); GRAN % 63.3 % (42.2-75.2); HEMOGLOBIN 11.6 g/dl (13.5-18.0); LYMPH % 17.8 % (20.0-51.0); MEAN CELL VOLUME 88 fl (80.0-100.0); MEAN CORPUSCULAR HEMOGLOBIN 28 pg (27-31); MEAN CORPUSCULAR HGB CONC 32 g/dl (33.0-37.0); MEAN PLATELET VOLUME 9.4 fl (7.4-10.4); MONO # 0.5 K/mm3 (0.1-0.6); MONO % 8.5 % (1.7-9.3); PLATELET COUNT 259 K/mm3 (130-400); RED BLOOD COUNT 4.18 M/mm3 (4.20-5.60); REDCELL DISTRIBUTION WIDTH-CV 14.5 % (11.5-14.5)
[2021-11-30 06:26] LABS: HEMATOCRIT 36.8 % (42.0-52.0)
[2021-11-30 06:51] LABS: ALBUMIN 2.2 gm/dL (3.4-4.8); CALCIUM 8.5 mg/dL (8.4-10.2); CREATININE, serum 1.14 mg/dL (0.72-1.25); MAGNESIUM 1.8 mg/dL (1.6-2.6); PHOSPHOROUS 3.4 mg/dL (2.3-4.7); POTASSIUM 3.7 mmol/L (3.5-4.5)
[2021-11-30 07:37] VITALS: BP 168/60; PULSE 58; TEMP 98.4
[2021-11-30] MEDS ORDERED: PROTONIX 40MG T40 MG PO (08:30)
[2021-11-30] MEDS ORDERED: MELATIN 3 MG-11 TAB PO (08:32)
[2021-11-30] MEDS ORDERED: NOVOLOG 100U100 U/M1 SQ (10:04)
[2021-11-30] MEDS ORDERED: MAXIPIME2 GM IV (10:30)
--- NOTE | 2021-11-30 11:17 | NUR ---
PATIENT INDEPENDENTLY AMBULATING IN ROOM WITH ROLLING WALKER. DRESSING SELF. DRESSINGS ON GAB/LE CLEAN AND INTACT. LEFT GREAT TOE DRESSING CLEAN AND INTACT. NO COMPLAINTS OF PAIN. PLAN TO DISCHARGE TO [facility] TODAY. PICC LINE ORDERED, IV IN RIGHT FOREARM FELL OUT PER PATIENT, SITE RED AND SWOLLEN. PILLS TAKEN WITH WATER. LUNGS CLEAR, SKIN ON BOTTOM INTACT.
[2021-11-30 11:34] VITALS: BP 168/61; PULSE 59; TEMP 98.2
--- NOTE | 2021-11-30 14:44 | NUR ---
PICC LINE PLACED AND PATENT. FIRST DOCE OF CEFEPIME GIVEN. PATIENT PACKED UP AND READY FOR TRANSFER TO [facility] AT 1500. NO COMPLAINTS OF PAIN. DRESSINGS CLEAN DRY AND INTACT. PAPERWORK PRINTED AND PACKAGED TO GO WITH MED TRANSPORT. WILL CALL REPORT ON TRANSPORT.
--- NOTE | 2021-11-30 15:47 | NUR ---
Nursing Techn collaborated with Hospitalist who advised patient will discharge on twice daily cephepime. DORON spoke with Lee at [facility] who advised they can provide this. DORON also faxed copy of DPOA-HC. Transport time set for 1500. PICC was placed and first dose of antibiotic was run through the PICC per RN. DORON faxed discharge orders and covid results. DORON met with patient who is agreeable with discharge to [facility] and inquired about his lost clothes which included his keys in the pocket. DORON contacted security to request assistance with this. DORON notified patient's sister, Danielle of discharge time to [facility]. Discharge Plan: [facility] SNF
== END 2021-11-30 15:44 | DRG 871 ==
LOC: COL.ER 03:46 → MEDICAL 04:33
PROVIDERS: Family Medicine; Internal Medicine; Physician Assistant; ADMIT Family Medicine
PROC: 0DB68ZX Excision of Stomach, Via Natural or Artificial Opening Endoscopic, Diagnostic (ICD-10-PCS; 2021-11-26)
PROC: 02H633Z Insertion of Infusion Device into Right Atrium, Percutaneous Approach (ICD-10-PCS; principal; 2021-11-30)
DX: A41.9 Sepsis, unspecified organism (principal); I21.A1 Myocardial infarction type 2; L03.116 Cellulitis of left lower limb; L03.115 Cellulitis of right lower limb; N17.9 Acute kidney failure, unspecified; J96.11 Chronic respiratory failure with hypoxia; E11.52 Type 2 diabetes mellitus with diabetic peripheral angiopathy with gangrene; E11.628 Type 2 diabetes mellitus with other skin complications; N18.30 Chronic kidney disease, stage 3 unspecified; E11.42 Type 2 diabetes mellitus with diabetic polyneuropathy; G89.29 Other chronic pain; M54.50 Low back pain, unspecified; E66.01 Morbid (severe) obesity due to excess calories; F32.9 Major depressive disorder, single episode, unspecified; K21.00 Gastro-esophageal reflux disease with esophagitis, without bleeding; R59.9 Enlarged lymph nodes, unspecified; F41.9 Anxiety disorder, unspecified; E11.22 Type 2 diabetes mellitus with diabetic chronic kidney disease; I12.9 Hypertensive chronic kidney disease with stage 1 through stage 4 chronic kidney disease, or unspecified chronic kidney disease; Z86.711 Personal history of pulmonary embolism; Z79.01 Long term (current) use of anticoagulants; Z79.82 Long term (current) use of aspirin; Z79.4 Long term (current) use of insulin; Z79.891 Long term (current) use of opiate analgesic; Z68.39 Body mass index [BMI] 39.0-39.9, adult
CPT/HCPCS: 99233-AI; C1751; C1892; J0692; J1644; J1650; J1815; J2270; J2405; J2543; J2704; J3370; J7030; J7040; J7050; J7120; Q9967

== ENCOUNTER 2022-01-21 18:34 | Emergency (ER) | payer MEDICARE, MEDICAID ==
[~2022-01-21] VITALS: Ht 182.9 cm; Wt 145.5 kg
[~2022-01-21 18:34] MED LIST changes: +MAXIPIME2 GM IV; +PROTONIX 40MG T40 MG PO
[2022-01-21 18:35] VITALS: TEMP 98.1
[2022-01-21 19:07] LABS: BASO # 0.1 K/mm3 (0.0-0.2); BASO % 0.8 % (0.0-2.0); EOS # 0.3 K/mm3 (0.0-0.7); EOS % 4.5 % (0.0-4.0); GRAN % 66.6 % (42.2-75.2); HEMATOCRIT 43.5 % (42.0-52.0); HEMOGLOBIN 14.1 g/dl (13.5-18.0); LYMPH # 1.2 K/mm3 (1.2-3.4); LYMPH % 19.5 % (20.0-51.0); MEAN CELL VOLUME 86 fl (80.0-100.0); MEAN CORPUSCULAR HEMOGLOBIN 28 pg (27-31); MEAN CORPUSCULAR HGB CONC 32 g/dl (33.0-37.0); MEAN PLATELET VOLUME 9.2 fl (7.4-10.4); MONO # 0.5 K/mm3 (0.1-0.6); MONO % 8.4 % (1.7-9.3); PLATELET COUNT 204 K/mm3 (130-400); RED BLOOD COUNT 5.09 M/mm3 (4.20-5.60); REDCELL DISTRIBUTION WIDTH-CV 15.2 % (11.5-14.5)
[2022-01-21] MEDS ORDERED: BACTRIM DS 8001 TAB PO (19:34)
[2022-01-21 20:21] VITALS: BP 170/72; PULSE 58
== END 2022-01-21 20:21 | disposition home or self-care (01) ==
LOC: COL.ER 18:34
PROVIDERS: Emergency Medicine
DX: L03.115 Cellulitis of right lower limb (principal); E66.01 Morbid (severe) obesity due to excess calories; Z68.41 Body mass index [BMI] 40.0-44.9, adult

== ENCOUNTER 2023-05-03 10:03 | Inpatient (IN) | payer MEDICARE, MEDICAID ==
[2023-05-03] VITALS (7 sets, daily range): BP systolic 91–144; BP diastolic 45–73; PULSE 44–88; TEMP 97.4–98.2
[~2023-05-03] VITALS: Ht 185.4 cm; Wt 126.0 kg
[~2023-05-03 10:03] MED LIST changes: +ALDACTONE50 MG PO; +BASAGLAR K100 UNIT/1 SQ; +CIPRO 500MG TA500 MG PO; +COUMADIN 22.5 MG/TAB PO; +COUMADIN 2MG2 MG/TAB PO; +INSULIN AS100 UNIT/2 SQ; +INSULIN AS100 UNIT/4 SQ; +LANTUS SOLOS100 U/ML SQ; +NEURONTIN300 MG/CAP PO; +NOVOLOG FLEX100 U/ML SQ; +PACERONE200 MG PO; +PROBIOTIC 2 BI1 EACH PO; +PROBIOTIC-10 370 MG PO; +QUALITY CHOICE AL70%; +SANTYL30 TP; +TYLENOL 500MG500 MG PO; +XARELTO STARTER20 MG PO; +XARELTO20 MG PO; +ZANAFLEX 4MG TAB4 MG PO; +[UNRECOGNIZED DRUG - OTHER] PO
[2023-05-03 10:35] LABS: HEMATOCRIT 42.9 % (42.0-52.0); HEMOGLOBIN 13.5 g/dl (13.5-18.0); MEAN CELL VOLUME 87 fl (80.0-100.0); MEAN CORPUSCULAR HEMOGLOBIN 27 pg (27-31); MEAN CORPUSCULAR HGB CONC 32 g/dl (33.0-37.0); MEAN PLATELET VOLUME 10.1 fl (7.4-10.4); PLATELET COUNT 191 K/mm3 (130-400); RED BLOOD COUNT 4.93 M/mm3 (4.20-5.60); REDCELL DISTRIBUTION WIDTH-CV 15.8 % (11.5-14.5)
[2023-05-03 10:55] LABS: ALBUMIN 2.7 gm/dL (3.4-4.8); BILIRUBIN,TOTAL 0.4 mg/dL (0.2-1.2); C-REACTIVE PROTEIN 16.68 mg/dL (0.00-0.50); CALCIUM 8.8 mg/dL (8.4-10.2); CREATININE, serum 2.83 mg/dL (0.72-1.25); POTASSIUM 4.1 mmol/L (3.5-4.5); TOTAL PROTEIN 7.6 gm/dL (6.2-8.1)
[2023-05-03 10:59] LABS: COLLECTION METHOD CLEAN CATCH
[2023-05-03 11:01] LABS: BAND 6 % (0-10); LYMPHOCYTE 12 % (20.0-51.0); METAMYELOCYTE 1 % (0-0); NEUTROPHILS 70 % (42.0-75.2); PLATELET ESTIMATE NORMAL (NORMAL)
[2023-05-03 11:24] LABS: PH 5.5 (5.0-8.5); URINE APPEARANCE Hazy (CLEAR/HAZY); URINE COLOR Straw (YELLOW); URINE GLUCOSE TRACE (NEGATIVE); URINE KETONE TRACE (NEGATIVE); URINE NITRATE Negative (NEGATIVE); URINE PROTEIN(semi-quant) 3+ (NEGATIVE); URINE UROBILINOGEN 0.2 E.U/dL (0.2-1.0)
[2023-05-03 11:25] LABS: AMORPHOUS CRYSTAL Present (NOT PRESENT); SQUAMOUS EPITHELIAL 0-2 /hpf (0-10); URINE BACTERIA Moderate /hpf (NONE SEEN); URINE BLOOD 3+ (NEGATIVE); URINE RBC 0-2 /hpf (0-2)
--- NOTE | 2023-05-03 13:54 | NUR ---
Patient arrived to the medical unit by bed, alert and oriented x 4, complains of pain in BLE 8/10 and left hip. Pt unable to transfer himself to the bed in the room.
[2023-05-03] MEDS ORDERED: SYNTHROID0.05 MG/TA PO (14:15)
[2023-05-03] MEDS ORDERED: ULTRAM 50MG TAB50 MG PO (14:16)
[2023-05-03] MEDS ORDERED: ZANAFLEX 4MG TAB4 MG PO (14:17)
[2023-05-03] MEDS ORDERED: CORDARONE200 MG/TAB PO (14:30)
--- NOTE | 2023-05-03 16:24 | NUR ---
[facility] called at approximately 1500 to report SB in 30-40 range[address] Pt [address] Ortiz notified. Primary nurse notified. Order rec'd for cardiology consult. HR currently in 50 range.
[2023-05-03 16:27] LABS: TSH w REFLEX 5.297 uIU/mL (0.350-4.940)
[2023-05-03 16:38] LABS: TROPONIN-I 0.139 ng/mL (0.00-0.033)
[2023-05-03 17:31] LABS: PARTIAL THROMBOPLASTIN TIME 32.7 SECONDS (26.0-37.0)
--- NOTE | 2023-05-03 18:36 | NUR ---
Patient getting hep gtt, fluids, antibiotics per orders. He is on 2L Oxymasc, Watching TV right now. Report will be given to night RN.
[2023-05-04] VITALS (13 sets, daily range): BP systolic 128–170; BP diastolic 71–81; PULSE 83–96; TEMP 97.8–98.3
--- NOTE | 2023-05-04 00:04 | NUR ---
patient lying in bed alert and oriented x4. pt denies chest pain and shortness of breath. pt reports 10/10 aching pain in the right hip, tylenol given per scheduled orders. pt educated on NPO status at midnight, verbally understood. redness to BLE, bruising and scabs generalized on extremities, RLE cellulitis closed palm sized ulcer with surrounding tissue blanching/perfusion, smaller closed ulcers on top of right foot, small closed ulcers on top of left foot, dry calloused discolored skin integrity on feet, closed ulcers on right elbow, per pt request foam dressing applied to protect from friction. notified RN on afib on monitor, pt history of afib noted, EKG orders placed, ROCIO Anne notified at this time. IV in LH with NS running at 75 and IV in RF with heparin gtt running at 22.5 ml/hr are patent, sites are clean dry and intact. pt has no further needs, questions or concerns. fall precautions in place, call light within reach. will continue to monitor.
[2023-05-04 07:51] LABS: HEMATOCRIT 39.4 % (42.0-52.0); HEMOGLOBIN 12.7 g/dl (13.5-18.0); MEAN CELL VOLUME 86 fl (80.0-100.0); MEAN CORPUSCULAR HEMOGLOBIN 28 pg (27-31); MEAN CORPUSCULAR HGB CONC 32 g/dl (33.0-37.0); MEAN PLATELET VOLUME 10.8 fl (7.4-10.4); PLATELET COUNT 172 K/mm3 (130-400); RED BLOOD COUNT 4.61 M/mm3 (4.20-5.60); REDCELL DISTRIBUTION WIDTH-CV 15.5 % (11.5-14.5)
[2023-05-04 08:15] LABS: ALBUMIN 2.2 gm/dL (3.4-4.8); CALCIUM 7.8 mg/dL (8.4-10.2); CREATININE, serum 2.66 mg/dL (0.72-1.25); MAGNESIUM 1.7 mg/dL (1.6-2.6); PHOSPHOROUS 3.5 mg/dL (2.3-4.7); POTASSIUM 3.2 mmol/L (3.5-4.5)
[2023-05-04 08:49] LABS: BAND 9 % (0-10); EOSINOPHIL 6 % (0-4); LYMPHOCYTE 22 % (20.0-51.0); METAMYELOCYTE 1 % (0-0); NEUTROPHILS 56 % (42.0-75.2); PLATELET ESTIMATE NORMAL (NORMAL)
--- NOTE | 2023-05-04 09:47 | NUR ---
sheet ironworker met with pt to discuss discharge planning. Pt was recently admitted at the hospital. Patient lives alone in [place]. Patient sees Dr. Ahuja or uses telehealth. He obtaisn medications at [facility] or delivery service with no difficulties. Ulysses's DPOA-HC is his sister, Danielle [phone]. Pt informs he has [facility] for nursing. Pt uses an electric chair for DME. Pt is indpendent with ADLS. Pt intends to return home at discharge pending further reccs. PT/OT Pending faxed updates to [facility]. Discharge Plan: tbd
--- NOTE | 2023-05-04 10:53 | NUR ---
Initial visit; Patient states he is hurting today when Resource Manager inquired how he is feeling. Resource Manager who she is and explained that she offers Spiritual [facility] and would like to pray for him or keep him in her prayers. Ulysses said he would like for her to keep him in her prayers. Resource Manager said that she would pray for the pain to go away and for him to heal. He smiled and thanked Resource Manager for coming in to visit.
--- NOTE | 2023-05-04 21:42 | NUR ---
Patient assessed around 2019. Alert and oriented, and able to make needs known. Reports pain to back, had already received pain medication around 1919. On oxygen at 2 L/min via [place]. Moist cough. LS coarse crackles upper lobes, diminished lower. HRI. Telemetry in place: Afib, rate controlled. Continues on Heparin drip per orders, running into IV site on right forearm. Has IV fluids and ABX running to IV site on left hand per orders. Requested Ambien. This nurse spoke with GERARDO Anne, and did not want to resume home Ambien at that time. Patient updated. Voices no further questions, needs, or concerns at this time. In bed with call light within reach. High fall risk precautions in place. Bed alarm on.
[2023-05-05 03:25] VITALS: BP 158/72; PULSE 86; TEMP 97.6
[2023-05-05 04:04] VITALS: BP_SYST 158
--- NOTE | 2023-05-05 06:21 | NUR ---
Patient continues on IV Fluids, ABX, and Heparin drip per orders. Assisted to recliner as requested with two assist with use of gait belt and walker. Give PRN Roxicodone for pain as requested. Voices no further questions, needs, or concerns at this time. In recliner with call light within reach. Chair alarm on.
[2023-05-05 08:00] VITALS: BP 156/80; PULSE 95; TEMP 97.9
[2023-05-05 08:09] LABS: HEMOGLOBIN 13.1 g/dl (13.5-18.0); MEAN CELL VOLUME 85 fl (80.0-100.0); MEAN CORPUSCULAR HEMOGLOBIN 27 pg (27-31); MEAN CORPUSCULAR HGB CONC 32 g/dl (33.0-37.0); MEAN PLATELET VOLUME 10.2 fl (7.4-10.4); PLATELET COUNT 189 K/mm3 (130-400); RED BLOOD COUNT 4.82 M/mm3 (4.20-5.60); REDCELL DISTRIBUTION WIDTH-CV 15.8 % (11.5-14.5)
[2023-05-05 08:11] LABS: ALBUMIN 2.3 gm/dL (3.4-4.8); CREATININE, serum 2.3 mg/dL (0.72-1.25); MAGNESIUM 1.7 mg/dL (1.6-2.6); PHOSPHOROUS 2.4 mg/dL (2.3-4.7); POTASSIUM 3.4 mmol/L (3.5-4.5)
[2023-05-05 08:34] LABS: ANISOCYTOSIS 1+; BAND 13 % (0-10); BASOPHIL 1 % (0-2); EOSINOPHIL 5 % (0-4); HYPOCHROMIA 1+; LYMPHOCYTE 19 % (20.0-51.0); NEUTROPHILS 60 % (42.0-75.2)
[2023-05-05 09:00] VITALS: BP_SYST 151
--- NOTE | 2023-05-05 09:09 | NUR ---
Follow-up visit; Patient appears to feel better today and didn't complain about having pain. Ulysses thanked for checking on him again today and wished her a "Happy New Year." thanked Ulysses and wished him well also.
[2023-05-05] MEDS ORDERED: DIOVAN HCT 25 M1 TA1 PO (11:32)
[2023-05-05] MEDS ORDERED: ALDACTONE50 MG PO (11:37)
[2023-05-05] MEDS ORDERED: AMOXICILLIN 8751 TAB PO (11:42)
[2023-05-05] MEDS ORDERED: IPRATROPIUM BROM3 M1 IH (11:42)
[2023-05-05] MEDS ORDERED: ELIQUIS 5MG PO (11:43)
[2023-05-05] MEDS ORDERED: CORDARONE200 MG/TAB PO (11:43)
[2023-05-05] MEDS ORDERED: TYLENOL 500MG500 MG PO (11:44)
[2023-05-05] MEDS ORDERED: LEVEMIR FLEX100 U/ML SQ (11:45)
[2023-05-05] MEDS ORDERED: RITE AID GLUCOSE4 G1 PO (11:46)
[2023-05-05] MEDS ORDERED: NOVLOG SQ (11:46)
[2023-05-05] MEDS ORDERED: GLUCAGEN1 MG IM (11:46)
[2023-05-05] MEDS ORDERED: ROXICODONE 55 MG/TAB PO (11:48)
[2023-05-05] MEDS ORDERED: AMBIEN 5MG TABLE5 MG PO (11:48)
[2023-05-05] MEDS ORDERED: DIOVAN 40MG40 MG PO (11:51)
[2023-05-05] MEDS ORDERED: K-DUR 10 MEQ T10 MEQ PO (11:52)
[2023-05-05 12:09] VITALS: BP 151/80; PULSE 85; TEMP 98.2
--- NOTE | 2023-05-05 12:37 | NUR ---
REPORT GIVEN TO CASH AT [facility].
--- NOTE | 2023-05-05 13:07 | NUR ---
PRUDENCE DRESSED AND IN HIS RECLINER AWAITING [facility]. PATIENT JANAY LIGHT WTIHIN REACH, CHAIR ALARM ON. FALL PRECAUTIONS INPLACE.
--- NOTE | 2023-05-05 13:20 | NUR ---
BOTH IV AND TELE DISCONTINUED
--- NOTE | 2023-05-05 13:25 | NUR ---
PRUDENCE LEFT IN STABLE CONDITION WITH [facility], PATIENT LEFT WITH ALL BELONGINGS
--- NOTE | 2023-05-05 14:12 | NUR ---
[facility] EM[facility]ITA GAMING CALLED THIS RN TO ASK WHAT SCALE OF INSULIN PATIENT WAS ON. THIS RN INFORMED HER HE WAS ON A HIGH SCALE. AMBERLY PADRON THIS RN READ OFF UNITS ORDERED FOR EACH RANGE OF BS ON THE HIGH SCALE.
--- NOTE | 2023-05-05 14:34 | NUR ---
(LATE ENTRY) On 05/04/23, Barn Manager met with patient to discuss recomendation for SNF. Patient is agreeable to this and mentioned [facility]. DORON advised patient both [facility] and [facility] are in network with [facility]. Patient stated he was agreeable to have referrals sent to both, but would prefer [facility] as he has been there before. DORON faxed referrals to both facilities. DORON also uploaded clinicals to [facility] and requested auth. On 05/05/23 DORON received authorization from [facility] for [facility]. DORON updated Lee at [facility] who advised they can accept today. DORON met with patient who is agreeable to this plan. Transport time set for 1315. DORON faxed orders to [facility] then called patient's sister, Danielle to notify her of discharge plan. Discharge Plan; [facility]
== END 2023-05-05 13:39 | DRG 70 ==
LOC: COL.ER 10:03 → MEDICAL 12:09
PROVIDERS: Family Medicine; Internal Medicine; Physician Assistant; ADMIT Internal Medicine
DX: G93.40 Encephalopathy, unspecified (principal); J69.0 Pneumonitis due to inhalation of food and vomit; S72.111A Displaced fracture of greater trochanter of right femur, initial encounter for closed fracture; J96.01 Acute respiratory failure with hypoxia; N17.9 Acute kidney failure, unspecified; G72.81 Critical illness myopathy; N18.30 Chronic kidney disease, stage 3 unspecified; R00.1 Bradycardia, unspecified; R79.89 Other specified abnormal findings of blood chemistry; I12.9 Hypertensive chronic kidney disease with stage 1 through stage 4 chronic kidney disease, or unspecified chronic kidney disease; I95.9 Hypotension, unspecified; R11.2 Nausea with vomiting, unspecified; E87.6 Hypokalemia; R35.0 Frequency of micturition; I48.91 Unspecified atrial fibrillation; Z86.711 Personal history of pulmonary embolism; E11.22 Type 2 diabetes mellitus with diabetic chronic kidney disease; Z79.4 Long term (current) use of insulin; E78.5 Hyperlipidemia, unspecified; F39 Unspecified mood [affective] disorder; E11.40 Type 2 diabetes mellitus with diabetic neuropathy, unspecified; K21.9 Gastro-esophageal reflux disease without esophagitis; G47.00 Insomnia, unspecified; E66.9 Obesity, unspecified; Z68.24 Body mass index [BMI] 24.0-24.9, adult; G89.29 Other chronic pain
CPT/HCPCS: A9284; J0690; J1644; J1815; J2405; J2543; J3480; J7030; Q3014

== ENCOUNTER → 2023-05-13 | Outpatient (CLI) | payer MEDICARE, MEDICAID ==
[~2023-05-13] MED LIST changes: +AMBIEN 5MG TABLE5 MG PO; +CORDARONE200 MG/TAB PO; +DIOVAN 40MG40 MG PO; +ELIQUIS 5MG PO; +GLUCAGEN1 MG IM; +IPRATROPIUM BROM3 M1 IH; +K-DUR 10 MEQ T10 MEQ PO; +RITE AID GLUCOSE4 G1 PO; +SYNTHROID0.05 MG/TA PO
== END ==
LOC: ZCOL.LAB 14:02
DX: R60.1 Generalized edema (principal)